=== PATIENT | male | born 1975 | race Caucasian/White ===

== ENCOUNTER 2024-04-19 11:10 | Inpatient (IN) | payer OTHER ==
[2024-04-19 11:50] VITALS: BMI 21.1
[2024-04-19] MEDS ORDERED: BENZONATATE 200 MG CAPSULE PO PRN (12:17)
[2024-04-19] MEDS ORDERED: IBUPROFEN 400 MG TABLET (FP) PO PRN (12:17)
[2024-04-19] MEDS ORDERED: P-EPHED 60MG/TRIPROLIDI 2.5MG TABLET PO PRN (12:17)
[2024-04-19] MEDS ORDERED: POLYETHYLENE GLYCOL (HEALTHYLAX) 3350 17 GM PACKET PO PRN (12:17)
[2024-04-19] MEDS ORDERED: IBUPROFEN 600 MG TABLET (FP) PO PRN (12:17)
[2024-04-19] MEDS ORDERED: BENZOCAINE/MENTHOL (CHLORASEPTIC ) LOZENGE MM PRN (12:17)
[2024-04-19] MEDS ORDERED: ONDANSETRON *ODT* 4 MG TABLET SL PRN (12:17)
[2024-04-19] MEDS ORDERED: guaiFENesin 600 MG TABLET.ER (FP) PO PRN (12:17)
[2024-04-19] MEDS ORDERED: MAG HYDROX/AL HYDROX/SIMETH 30 ML UNIT-DOSE CUP PO PRN (12:17)
[2024-04-19] MEDS ORDERED: DICYCLOMINE HCL 10 MG CAPSULE PO PRN (12:17)
[2024-04-19] MEDS ORDERED: MAGNESIUM HYDROX 2400MG/30ML ORAL SUSPENSION 30 ML CUP PO PRN (12:17)
[2024-04-19] MEDS: chlordiazePOXIDE HCL 25 MG CAPSULE PO PRN (14:13)
[2024-04-19] MEDS ORDERED: chlordiazePOXIDE HCL 25 MG CAPSULE ONE (14:14)
[2024-04-19] MEDS: METHOCARBAMOL 500 MG TABLET PO PRN (14:30)
[2024-04-19] MEDS: hydrOXYzine PAMOATE 25 MG CAPSULE (FP) PO PRN (14:30)
[2024-04-19] MEDS: NICOTINE POLACRILEX 2 MG GUM BUC PRN (14:34)
[2024-04-19] MEDS: chlordiazePOXIDE HCL 25 MG CAPSULE PO SCH (17:12)
[2024-04-19] MEDS: NICOTINE POLACRILEX 2 MG LOZENGE BC PRN (18:04)
[2024-04-19] MEDS: THIAMINE 100 MG TABLET PO SCH (22:19)
[2024-04-19] MEDS: MELATONIN 5 MG TABLETS PO SCH (22:19)
[2024-04-20] MEDS: chlordiazePOXIDE HCL 25 MG CAPSULE PO SCH (05:18)
[2024-04-20 08:57] LABS: HEMATOCRIT 36.9 % (35.4-49); HEMOGLOBIN 12.1 GM/dL (11.7-16.9); MCH 34.1 pg (25.7-33.7); MCHC 32.7 g/dl (32.0-35.9); MEAN CELL VOLUME 104.3 fl (80-96); MEAN PLT VOLUME 7.9 fl (7.5-11.1); PLATELET COUNT 243 10^3/uL (134-434); RBC 3.54 M/mm3 (4.00-5.60); RDW 15.8 % (11.9-15.9); WHITE BLOOD COUNT 7.7 K/mm3 (4.0-10.0)
[2024-04-20 09:02] LABS: CHLORIDE 110 mmol/L (98-107); POTASSIUM 4.1 mmol/L (3.5-5.1); SODIUM 139 mmol/L (136-145)
[2024-04-20 09:08] LABS: ALBUMIN 3.3 g/dl (3.4-5.0); ANION GAP 1 mmol/L (4-13); CALCIUM 8.7 mg/dL (8.5-10.1); CO2 28 mmol/L (21-32); GLUCOSE,RANDOM 74 mg/dL (74-106)
[2024-04-20 09:09] LABS: BLOOD UREA NITROGEN 10.6 mg/dL (7-18)
[2024-04-20 09:11] LABS: CREATININE 0.7 mg/dL (0.55-1.3); SGPT/ALT 16 U/L (13-61)
[2024-04-20 09:12] LABS: SGOT/AST 13 U/L (15-37)
[2024-04-20 09:13] LABS: BILIRUBIN,TOTAL 0.3 mg/dL (0.2-1); TOT PROT 6.2 g/dl (6.4-8.2)
[2024-04-20 09:14] LABS: ALK PHOS 92 U/L (45-117)
[2024-04-20] MEDS: PRENATAL VITAMINS W/ FOLIC ACID TABLET (FP) PO SCH (10:09)
[2024-04-20] MEDS: FLU VACCINE (FLULAVAL) PF 45 MCG/0.5 ML SYRINGE 2024-2025 IM ONE (11:44)
[2024-04-20] MEDS: PNEUMOC 20-VAL CONJ-DIP CRM/PF 0.5 ML SYRINGE IM ONE (11:52)
[2024-04-20] MEDS: ACETAMINOPHEN 325 MG TABLET (FP) PO PRN (22:26)
[2024-04-20] MEDS: LOPERAMIDE HCL 2 MG CAPSULE PO PRN (22:26)
[2024-04-21] MEDS: chlordiazePOXIDE HCL 10 MG CAPSULE PO SCH (05:50)
[2024-04-21] MEDS: NICOTINE POLACRILEX 2 MG GUM BUC PRN (13:21)
[2024-04-21] MEDS: BISMUTH SUBSALICYLATE 524 MG/30 ML PO PRN (22:15)
[2024-04-22] MEDS ORDERED: chlordiazePOXIDE HCL 10 MG CAPSULE PO PRN
[2024-04-22] MEDS: chlordiazePOXIDE HCL 10 MG CAPSULE PO SCH (05:24)
[2024-04-22 16:44] VITALS: RESP 16
[2024-04-23] MEDS: chlordiazePOXIDE HCL 10 MG CAPSULE PO ONE (05:20)
[2024-04-23 05:48] VITALS: PULSE 65
[2024-04-23 05:51] VITALS: BP 102/62; TEMP 98.2
[2024-04-23] MEDS: NALOXONE (NARCAN) HCL 4 MG/0.1 ML SPRAY NS PRN (09:17)
== END 2024-04-23 12:06 | disposition other institution (70) | DRG 775 ==
LOC: YASAS 11:10 → Y3N 14:00
PROVIDERS: ADMIT Allergy & Immunology; ATTEND Allergy & Immunology
PROC: HZ2ZZZZ Detoxification Services for Substance Abuse Treatment (ICD-10-PCS; principal; 2024-04-19)
DX: F10.230 Alcohol dependence with withdrawal, uncomplicated (principal); F17.210 Nicotine dependence, cigarettes, uncomplicated; F10.282 Alcohol dependence with alcohol-induced sleep disorder; F19.280 Other psychoactive substance dependence with psychoactive substance-induced anxiety disorder; F19.24 Other psychoactive substance dependence with psychoactive substance-induced mood disorder; F32.9 Major depressive disorder, single episode, unspecified; R19.7 Diarrhea, unspecified; Z59.00 Homelessness unspecified
CPT/HCPCS: 36415; 80053; 80305; 80307; 82607; 85027; 86780; 90656; 90677; 93005; 93010; G0008; G0009

== ENCOUNTER 2024-04-23 11:50 | Inpatient (IN) | payer OTHER ==
[2024-04-23] MEDS ORDERED: MAG HYDROX/AL HYDROX/SIMETH 30 ML UNIT-DOSE CUP PO PRN (15:24)
[2024-04-23] MEDS ORDERED: hydrOXYzine PAMOATE 25 MG CAPSULE (FP) PO PRN (15:24)
[2024-04-23] MEDS ORDERED: NALOXONE (NARCAN) HCL 4 MG/0.1 ML SPRAY NS PRN (15:24)
[2024-04-23] MEDS ORDERED: METHOCARBAMOL 500 MG TABLET PO PRN (15:24)
[2024-04-23] MEDS ORDERED: NALOXONE HCL 0.4 MG/ML VIAL IVPUSH PRN (15:24)
[2024-04-23] MEDS ORDERED: POLYETHYLENE GLYCOL (HEALTHYLAX) 3350 17 GM PACKET PO PRN (15:24)
[2024-04-23] MEDS ORDERED: BENZONATATE 200 MG CAPSULE PO PRN (15:24)
[2024-04-23] MEDS ORDERED: guaiFENesin 600 MG TABLET.ER (FP) PO PRN (15:24)
[2024-04-23] MEDS ORDERED: MAGNESIUM HYDROX 2400MG/30ML ORAL SUSPENSION 30 ML CUP PO PRN (15:24)
[2024-04-23] MEDS ORDERED: BENZOCAINE/MENTHOL (CHLORASEPTIC ) LOZENGE MM PRN (15:24)
[2024-04-23] MEDS ORDERED: IBUPROFEN 400 MG TABLET (FP) PO PRN (15:24)
[2024-04-23] MEDS ORDERED: ACETAMINOPHEN 325 MG TABLET (FP) PO PRN (15:24)
[2024-04-23] MEDS: NICOTINE POLACRILEX 4 MG GUM BUC PRN (16:00)
[2024-04-23] MEDS: MELATONIN 5 MG TABLETS PO SCH (21:08)
[2024-04-23] MEDS: THIAMINE 100 MG TABLET PO SCH (21:08)
[2024-04-23] MEDS: busPIRone HCL 10 MG TABLET (FP) PO SCH (21:10)
[2024-04-24] MEDS: PRENATAL VITAMINS W/ FOLIC ACID TABLET (FP) PO SCH (10:10)
[2024-04-24] MEDS: NICOTINE 21 MG/24 HOURS TOPICAL PATCH TD SCH (10:10)
[2024-04-24 12:34] LABS: HIV INTERPRETATION NEGATIVE (NEGATIVE)
[2024-04-24] MEDS: IBUPROFEN 600 MG TABLET (FP) PO PRN (21:22)
[2024-04-25] MEDS: NICOTINE POLACRILEX 4 MG LOZENGE BC PRN (06:06)
[2024-04-25] MEDS: CYANOCOBALAMIN 1,000 MCG TABLET (FP) PO SCH (09:59)
[2024-04-25] MEDS: NALTREXONE HCL 50 MG TABLET PO SCH (17:43)
[2024-04-26] MEDS ORDERED: NALTREXONE HCL 50 MG TABLET PO SCH (10:00)
[2024-04-28 12:29] LABS: PROTHROMBIN TIME (PATIENT) 10.9 SEC (9.7-13.0)
[2024-05-02] MEDS: SUVOREXANT 10 MG TABLET PO PRN (21:30)
[2024-05-04] MEDS: SUVOREXANT 5 MG TABLET PO PRN (21:22)
[2024-05-05] MEDS: RIFAXIMIN 550 MG TABLET PO SCH (21:12)
[2024-05-06] MEDS: TOLNAFTATE 1% POWDER 45 GM POW TP SCH (13:29)
[2024-05-09] MEDS: TOLNAFTATE 1% POWDER 45 GM POW TP PRN (17:57)
[2024-05-09] MEDS: SUVOREXANT 5 MG TABLET PO PRN (21:31)
[2024-05-10] MEDS: NICOTINE 14 MG/24 HOURS TOPICAL PATCH TD SCH (10:15)
[2024-05-13] MEDS: SUVOREXANT 5 MG TABLET PO PRN (21:40)
[2024-05-15] MEDS: LOPERAMIDE HCL 2 MG CAPSULE PO PRN (12:45)
[2024-05-15] MEDS: SUVOREXANT 5 MG TABLET PO PRN (21:29)
[2024-05-16] MEDS: SUVOREXANT 10 MG TABLET PO PRN (21:35)
[2024-05-17] MEDS: NICOTINE 7 MG/24 HOURS TOPICAL PATCH TD SCH (10:04)
[2024-05-20] MEDS: SUVOREXANT 5 MG TABLET PO PRN (21:39)
[2024-05-21 07:02] VITALS: BP 116/74; PULSE 78; RESP 16; TEMP 96.7
== END 2024-05-21 10:30 | disposition other institution (70) | DRG 772 ==
LOC: YASAS 11:50 → Y3E 11:52 → Y3NR 05-13 13:14 → Y5N 05-13 15:06
PROVIDERS: ADMIT Psychiatry & Neurology Pain Medicine; ATTEND Psychiatry & Neurology Pain Medicine
PROC: HZ42ZZZ Group Counseling for Substance Abuse Treatment, Cognitive-Behavioral (ICD-10-PCS; principal; 2024-04-23)
DX: F10.20 Alcohol dependence, uncomplicated (principal); F17.210 Nicotine dependence, cigarettes, uncomplicated; F10.282 Alcohol dependence with alcohol-induced sleep disorder; F19.280 Other psychoactive substance dependence with psychoactive substance-induced anxiety disorder; F19.24 Other psychoactive substance dependence with psychoactive substance-induced mood disorder; F32.9 Major depressive disorder, single episode, unspecified; B35.3 Tinea pedis; R60.0 Localized edema
CPT/HCPCS: 36415; 82140; 82652; 83735; 85610; 86803; 87389